=== PATIENT | female | born 1985 ===

== ENCOUNTER 2022-08-25 00:38 | Outpatient (CLI) | payer OTHER, SELFPAY ==
--- NOTE | 2022-08-25 13:22 | DI.MAMMO_ITS ---
Exam(s) US BREAST LT COMPLETE US BREAST RT COMPLETE MG MAMMO DIAGNOSTIC BI EXAM: MG MAMMO DIAGNOSTIC BI AND BILATERAL COMPLETE BREAST ULTRASOUND CLINICAL HISTORY: breast mass,lt n63.20. TECHNIQUE: Both CC and MLO views of both breasts-mammographic images were obtained with 3D tomosynth esis technique and utilizing computer aided detection (CAD). Both conventional and implant displacement views of both breasts were performed BILATERAL COMPLETE BREAST ULTRASOUND was also performed including all 4 quadrants of both breasts, th e retroareolar regions and both axillary regions. COMPARISON: None. This is a baseline diagnostic study on this 36-year-old patient feels a lump in t he inferior aspect of her left breast. She has breast implants approximately 3 years. FINDINGS: DIAGNOSTIC BILATERAL MAMMOGRAM: There are intact bilateral retropectoral radiopaque silicone implants. Multiple well-defined similar appearing noncalcified nodules are seen bilaterally. Inferiorly in the left breast (area of clinical concern) there is a large to these nodules which measures approximatel y 2 by 1.8 cm. This is shown to be a benign cyst on today's ultrasound performed following this mamm ogram. Other similar appearing but slightly smaller well-defined noncalcified nodules are noted bila terally, also shown to be cysts on ultrasound exam today. There are no spiculated masses nor malignant-appearing microcalcification groups in either breast. N o significant architectural distortion or skin thickening-retraction. BILATERAL COMPLETE BREAST ULTRASOUND: Left breast ultrasound: At the 7 o'clock position there is a 2.1 by 1.3 cm benign cyst, this correspo nding to her palpable finding. This is a simple cyst with no solid mural components. Elsewhere in the left breast there are cysts at the 9 o'clock position, both measuring 7 millimeters. Left axilla is negative for significant adenopathy. Right breast ultrasound: At the 12 o'clock position there is a 1.5 by 0.8 cm benign cyst. At 2 o'bhaskar ck position there is a septated cyst measuring 1.5 x 1.0 cm. These findings correspond to nodules on the mammogram in the right breast. Most importantly, there are no solid lesions seen in either breast on ultrasound exam. Also no adeno pedro seen in either axilla. IMPRESSION: No radiographic evidence of malignancy in either breast. There are bilateral breast cysts, the largest corresponding to what she is feeling and located inferi denise at the 7 o'clock position of the left breast. These are also shown to be cysts on today's ultra sound examination. This measures 2.1 x 1.3 cm. No solid lesions in either breast. No axillary adenopathy. Bilateral retropectoral saline implants which appear intact. Appropriate follow-up is repeat bilateral breast ultrasound in 1 year, earlier if clinically indicate d.. The patient was informed of the findings and follow-up recommendations by myself prior to leaving the department today. BI-RADS Category 2 - Benign Findings Breast Density - Category C - Heterogeneously dense Breast density Category C or D implies that the patient has dense breast tissue. Dense breast tissue can make it harder to find cancer on a mammogram. Dense breast tissue is also associated with an incr eased risk of breast cancer. This information about the result of the mammogram report was provided to the patient to raise their awareness. Use this report when you speak with the patient about their risks for breast cancer, which includes their family history. At that time, you may recommend additional screening tests (Ultrasoun d or MRI) as these tests may add significant information. A negative radiographic report should not delay biopsy if a dominant or clinically suspicious mass is present. Up to ten percent of cancers are not identified on mammography. A negative report may reinforce clinical impression. Adenosis and dense breasts may obscure an underlying neoplasm. False positive reports average 6 to 10%. Patient will receive a letter notifying them of these results.
== END 2022-08-25 00:58 ==
LOC: DI 00:38
PROVIDERS: PCP General Practice; Visit Provider Obstetrics & Gynecology
DX: Z98.82 Breast implant status; N63.24 Unspecified lump in the left breast, lower inner quadrant; N60.12 Diffuse cystic mastopathy of left breast; N60.11 Diffuse cystic mastopathy of right breast
CPT/HCPCS: 76642; 77062; 77066; G0279

== ENCOUNTER 2023-12-19 14:23 | Outpatient (REF) | payer BC, SELFPAY ==
--- NOTE | 2023-12-19 14:20 | PAPFT_PTH ---
PATIENT: Melina Warren LOC: [facility] U#:[id number] AGE/SX: 38/F ROOM: RE12/19/[address]: Frannie Stack MD : [id number] BED: DIS: 12/19/2023 SPEC #: [id number] RECD: 12/19/23 18:01 STATUS: AURORAAngella RECorine #: [id number] BAYLEE: 12/19/23 14:[address]: Frannie Stack DEPT: [facility] Cytology RECD BY: Rose Bee ENTERED: 12/19/23 18:02 SP TYPE: PAPFT OTHR DR: Teddy Alcantar Tissues: 1 - CX/ENDOCX FOR PAP SMEARS Procedures: PAP THIN PREP/[facility] Screening HPV DNA PROBE Comments: [id number]
== END 2023-12-19 14:24 | disposition home or self-care (01) ==
LOC: LBN 14:23
PROVIDERS: PCP General Practice; Visit Provider Obstetrics & Gynecology
DX: Z12.4 Encounter for screening for malignant neoplasm of cervix (principal)
CPT/HCPCS: 88142; 87624

== ENCOUNTER → 2023-12-28 00:28 | Outpatient (CLI) | payer BC, SELFPAY ==
--- NOTE | 2023-12-28 07:45 | DI.US_ITS ---
Exam(s) MG MAMMO DIAGNOSTIC BI US BREAST LT LIMITED EXAM: MG MAMMO DIAGNOSTIC BI CLINICAL HISTORY: LT BREAST LUMP, N63.20, HAS IMPLANTS. COMPARISON: MG MG MAMMO DIAGNOSTIC BI from 08/25/2022 US US BREAST LT COMPLETE from 08/25/2022 US US BREAST RT COMPLETE from 08/25/2022 US US BREAST LT LIMITED from 12/28/2023 TECHNIQUE: Craniocaudal and mediolateral oblique Full Field Digital Mammography views of breast with Computer Aided Diagnosis followed by Tomosynthesis. Implant displaced views also performed. Left breast ultrasound. FINDINGS: Mammography/Tomosynthesis: Masses: Left breast: Circumscribed nodule noted in the upper outer quadrant. The prior exams showed additional nodule inferiorly which is not seen on today's exam. Right breast: Stable circumscribed cysts again noted in the superior right breast as well central pos terior right breast. Architectural Distortion: None seen. Microcalcifications: No suspicious pleomorphic-type are seen. Skin Thickening/Nipple Retraction: None. Left breast US: Echotexture: Normal appearance of the glandular tissue. Shadowing: No suspicious foci. Cyst: 1.5 x 1.0 x 1.3 centimeter cyst in the 12 o'clock position, 1 cm from the nipple, slightly smal ler when compared the prior exam. Solid lesions: None seen. Ductal dilation: None. IMPRESSION: 1. No evidence of malignancy is noted. Palpable abnormality corresponds to a simple cyst. 2. Unless there is more urgent need, follow-up screening mammography is recommended, as per [employer] guidelines. BI-RADS Category 2 - Benign Findings Breast Density - Category C - Heterogeneously dense Breast density category C or D implies that the patient has dense breast tissue. Dense breast tissue is very common and is not abnormal but dense breast tissue can make it harder to find cancer on a ma mmogram. Also, dense breast tissue may increase their breast cancer risk. This information about the result of the mammogram report was provided to the patient to raise their awareness. Use this report when you speak with the patient about their risks for breast cancer, which includes their family hist ory. At that time, you may recommend for more screening tests (Ultrasound or MRI) as they might be us eful based on their risk. A negative radiographic report should not delay biopsy if a dominant or clinically suspicious mass is present. Up to ten percent of cancers are not identified on mammography. A negative report may reinforce clinical impression. Adenosis and dense breasts may obscure an underlying neoplasm. False positive reports average 6 to 10%. Patient will receive a letter notifying them of these results.
== END ==
PROVIDERS: PCP General Practice; Visit Provider Obstetrics & Gynecology
DX: N63.22 Unspecified lump in the left breast, upper inner quadrant (principal); Z12.31 Encounter for screening mammogram for malignant neoplasm of breast
CPT/HCPCS: 76642; 77062; 77066; G0279